=== PATIENT | male | born 1955 | race Caucasian/White ===

== ENCOUNTER 2020-02-27 06:04 | Outpatient (REF) | payer MEDICARE, OTHER, SELFPAY ==
[2020-02-27 11:26] LABS: MANUAL DIFF FLAG NO
[2020-02-27 11:44] LABS: Basophils Absolute Auto 0.1 X10*3/uL (0.0-0.2); Basophils Percent Auto 0.5 % (0-2); Eosinophils Absolute Auto 0.2 X10*3/uL (0.0-0.4); Eosinophils Percent Auto 0.9 % (0-4); Hematocrit 38.9 % (42-52); Hemoglobin 12.8 g/dl (14.0-18.0); Imm Gran Abs Auto 0.45 X10*3/uL (0.00-0.03); Imm Gran Pct Auto 2.3 % (0.0-0.4); Lymphocytes Absolute Auto 2.8 X10*3/uL (1.2-4.9); Lymphocytes Percent Auto 14.6 % (20-40); Mean Corpuscular HGB Conc 32.9 g/dl (31.0-36.0); Mean Corpuscular Hemoglobin 32.6 pg (27.0-33.0); Mean Platelet Volume 11.2 fL (9.4-12.4); Monocytes Absolute Auto 1.2 X10*3/uL (0.1-1.2); Monocytes Percent Auto 5.9 % (2-11); Neutrophils Absolute Auto 14.7 X10*3/uL (2.0-8.3); Neutrophils Percent Auto 75.8 % (45-73); Platelet Count 214 X10*3/uL (160-400); Red Blood Count 3.93 X10*6/uL (4.60-5.80); Red Cell Distribution Width 14.7 % (11.0-16.0); White Blood Count 19.4 X10*3/uL (4.8-10.8)
[2020-02-27 11:53] LABS: Alanine Aminotransferase 86 U/L (0-40); Albumin Level 4.1 g/dL (3.5-5.0); Alkaline Phosphatase 227 U/L (39-117); Anion Gap 15 (12-20); Aspartate Amino Transferase 57 U/L (5-37); Bilirubin Total 0.6 mg/dL (0.0-1.0); Blood Urea Nitrogen 15 mg/dL (9-16); Calcium 8.5 mg/dL (8.4-10.2); Carbon Dioxide 25 mmol/L (22-29); Chloride 99 mmol/L (96-108); Estimated Glomerular Filt Rate > 60; Glucose Random 103 mg/dL (60-115); Potassium 3.7 mmol/l (3.3-5.1); Sodium 135 mmol/L (135-145); Total Protein 6.3 g/dL (6.5-8.0)
== END 2020-02-27 06:05 | disposition home or self-care (01) ==
LOC: HO.HMGCLR 06:04
PROVIDERS: PCP Internal Medicine; Visit Provider Internal Medicine
DX: C25.0 Malignant neoplasm of head of pancreas (principal)
CPT/HCPCS: 36415; 80053; 85025

== ENCOUNTER 2020-03-19 06:00 | Outpatient (REF) | payer MEDICARE, OTHER, SELFPAY ==
[2020-03-19 11:08] LABS: MANUAL DIFF FLAG NO
[2020-03-19 11:12] LABS: Basophils Absolute Auto 0.1 X10*3/uL (0.0-0.2); Basophils Percent Auto 0.4 % (0-2); Eosinophils Absolute Auto 0.3 X10*3/uL (0.0-0.4); Eosinophils Percent Auto 1.9 % (0-4); Hematocrit 34.4 % (42-52); Hemoglobin 11.4 g/dl (14.0-18.0); Imm Gran Pct Auto 1.3 % (0.0-0.4); Lymphocytes Percent Auto 18.8 % (20-40); Mean Corpuscular HGB Conc 33.1 g/dl (31.0-36.0); Mean Corpuscular Hemoglobin 32.8 pg (27.0-33.0); Mean Corpuscular Volume 98.9 fL (80-98); Mean Platelet Volume 11.3 fL (9.4-12.4); Monocytes Absolute Auto 1.1 X10*3/uL (0.1-1.2); Monocytes Percent Auto 6.7 % (2-11); Neutrophils Absolute Auto 11.2 X10*3/uL (2.0-8.3); Neutrophils Percent Auto 70.9 % (45-73); Platelet Count 215 X10*3/uL (160-400); Red Blood Count 3.48 X10*6/uL (4.60-5.80); Red Cell Distribution Width 14.6 % (11.0-16.0); White Blood Count 15.7 X10*3/uL (4.8-10.8)
[2020-03-19 12:09] LABS: Alanine Aminotransferase 195 U/L (0-40); Albumin Level 3.8 g/dL (3.5-5.0); Alkaline Phosphatase 271 U/L (39-117); Anion Gap 13 (12-20); Aspartate Amino Transferase 76 U/L (5-37); Bilirubin Total 0.7 mg/dL (0.0-1.0); Blood Urea Nitrogen 12 mg/dL (9-16); Calcium 7.8 mg/dL (8.4-10.2); Carbon Dioxide 26 mmol/L (22-29); Chloride 102 mmol/L (96-108); Estimated Glomerular Filt Rate > 60; Glucose Random 95 mg/dL (60-115); Potassium 3.9 mmol/l (3.3-5.1); Sodium 137 mmol/L (135-145); Total Protein 5.9 g/dL (6.5-8.0)
== END 2020-03-19 06:01 | disposition home or self-care (01) ==
LOC: HO.HMGCLR 06:00
PROVIDERS: PCP Internal Medicine; Visit Provider Internal Medicine
DX: C25.0 Malignant neoplasm of head of pancreas (principal)
CPT/HCPCS: 36415; 80053; 85025

== ENCOUNTER 2020-04-02 06:00 | Outpatient (REF) | payer MEDICARE, OTHER, SELFPAY ==
[2020-04-02 07:47] LABS: MANUAL DIFF FLAG NO
[2020-04-02 07:51] LABS: Basophils Absolute Auto 0.1 X10*3/uL (0.0-0.2); Basophils Percent Auto 0.4 % (0-2); Eosinophils Absolute Auto 0.2 X10*3/uL (0.0-0.4); Eosinophils Percent Auto 1.5 % (0-4); Hematocrit 33.7 % (42-52); Imm Gran Abs Auto 0.51 X10*3/uL (0.00-0.03); Imm Gran Pct Auto 3.6 % (0.0-0.4); Lymphocytes Absolute Auto 2.4 X10*3/uL (1.2-4.9); Lymphocytes Percent Auto 16.8 % (20-40); Mean Corpuscular HGB Conc 32.6 g/dl (31.0-36.0); Mean Corpuscular Hemoglobin 33.2 pg (27.0-33.0); Mean Corpuscular Volume 101.8 fL (80-98); Mean Platelet Volume 11.2 fL (9.4-12.4); Monocytes Absolute Auto 1.2 X10*3/uL (0.1-1.2); Monocytes Percent Auto 8.5 % (2-11); Neutrophils Absolute Auto 9.8 X10*3/uL (2.0-8.3); Neutrophils Percent Auto 69.2 % (45-73); Platelet Count 225 X10*3/uL (160-400); Red Blood Count 3.31 X10*6/uL (4.60-5.80); Red Cell Distribution Width 15.7 % (11.0-16.0); White Blood Count 14.1 X10*3/uL (4.8-10.8)
[2020-04-02 08:26] LABS: Alanine Aminotransferase 101 U/L (0-40); Albumin Level 3.7 g/dL (3.5-5.0); Alkaline Phosphatase 245 U/L (39-117); Anion Gap 13 (12-20); Aspartate Amino Transferase 48 U/L (5-37); Bilirubin Total 0.4 mg/dL (0.0-1.0); Blood Urea Nitrogen 17 mg/dL (9-16); Calcium 7.9 mg/dL (8.4-10.2); Carbon Dioxide 24 mmol/L (22-29); Chloride 106 mmol/L (96-108); Estimated Glomerular Filt Rate > 60; Glucose Fasting 91 mg/dL (60-99); Potassium 4.2 mmol/l (3.3-5.1); Sodium 139 mmol/L (135-145); Total Protein 5.8 g/dL (6.5-8.0)
== END 2020-04-02 06:01 | disposition home or self-care (01) ==
LOC: HO.HMGCLR 06:00
PROVIDERS: PCP Internal Medicine; Visit Provider Internal Medicine
DX: C25.0 Malignant neoplasm of head of pancreas (principal)
CPT/HCPCS: 36415; 80053; 85025

== ENCOUNTER 2020-04-16 06:03 | Outpatient (REF) | payer MEDICARE, OTHER, SELFPAY ==
[2020-04-16 11:06] LABS: Basophils Absolute Auto 0.1 X10*3/uL (0.0-0.2); Basophils Percent Auto 0.6 % (0-2); Eosinophils Absolute Auto 0.3 X10*3/uL (0.0-0.4); Eosinophils Percent Auto 1.3 % (0-4); Hematocrit 33.1 % (42-52); Hemoglobin 10.6 g/dl (14.0-18.0); Imm Gran Abs Auto 0.58 X10*3/uL (0.00-0.03); Imm Gran Pct Auto 2.5 % (0.0-0.4); Lymphocytes Percent Auto 17.3 % (20-40); MANUAL DIFF FLAG SCAN; Mean Corpuscular Hemoglobin 32.8 pg (27.0-33.0); Mean Corpuscular Volume 102.5 fL (80-98); Mean Platelet Volume 11.5 fL (9.4-12.4); Monocytes Absolute Auto 1.7 X10*3/uL (0.1-1.2); Monocytes Percent Auto 7.2 % (2-11); Neutrophils Absolute Auto 16.2 X10*3/uL (2.0-8.3); Neutrophils Percent Auto 71.1 % (45-73); Platelet Count 224 X10*3/uL (160-400); Red Blood Count 3.23 X10*6/uL (4.60-5.80); Red Cell Distribution Width 15.2 % (11.0-16.0); SCAN SMEAR FLAG 1; White Blood Count 22.9 X10*3/uL (4.8-10.8)
[2020-04-16 11:27] LABS: SLIDE REVIEW VERIFIED
[2020-04-16 11:56] LABS: Alanine Aminotransferase 125 U/L (0-40); Albumin Level 3.5 g/dL (3.5-5.0); Alkaline Phosphatase 286 U/L (39-117); Anion Gap 13 (12-20); Aspartate Amino Transferase 68 U/L (5-37); Bilirubin Total 0.4 mg/dL (0.0-1.0); Blood Urea Nitrogen 17 mg/dL (9-16); Calcium 7.7 mg/dL (8.4-10.2); Carbon Dioxide 23 mmol/L (22-29); Chloride 103 mmol/L (96-108); Estimated Glomerular Filt Rate > 60; Glucose Random 76 mg/dL (60-115); Potassium 4.2 mmol/l (3.3-5.1); Sodium 135 mmol/L (135-145); Total Protein 5.6 g/dL (6.5-8.0)
== END 2020-04-16 06:04 | disposition home or self-care (01) ==
LOC: HO.HMGCLR 06:03
PROVIDERS: PCP Internal Medicine; Visit Provider Internal Medicine
DX: C25.0 Malignant neoplasm of head of pancreas (principal)
CPT/HCPCS: 36415; 80053; 85025

== ENCOUNTER 2020-04-30 06:03 | Outpatient (REF) | payer MEDICARE, OTHER, SELFPAY ==
[2020-04-30 11:03] LABS: MANUAL DIFF FLAG NO
[2020-04-30 11:19] LABS: Basophils Absolute Auto 0.1 X10*3/uL (0.0-0.2); Basophils Percent Auto 0.6 % (0-2); Eosinophils Absolute Auto 0.2 X10*3/uL (0.0-0.4); Eosinophils Percent Auto 1.4 % (0-4); Hematocrit 34.5 % (42-52); Imm Gran Abs Auto 0.49 X10*3/uL (0.00-0.03); Lymphocytes Absolute Auto 2.3 X10*3/uL (1.2-4.9); Lymphocytes Percent Auto 13.9 % (20-40); Mean Corpuscular HGB Conc 31.9 g/dl (31.0-36.0); Mean Corpuscular Volume 103.6 fL (80-98); Mean Platelet Volume 11.3 fL (9.4-12.4); Monocytes Absolute Auto 1.2 X10*3/uL (0.1-1.2); Monocytes Percent Auto 7.3 % (2-11); Neutrophils Absolute Auto 12.2 X10*3/uL (2.0-8.3); Neutrophils Percent Auto 73.8 % (45-73); Platelet Count 247 X10*3/uL (160-400); Red Blood Count 3.33 X10*6/uL (4.60-5.80); Red Cell Distribution Width 15.3 % (11.0-16.0); White Blood Count 16.6 X10*3/uL (4.8-10.8)
[2020-04-30 11:48] LABS: Alanine Aminotransferase 93 U/L (0-40); Albumin Level 3.6 g/dL (3.5-5.0); Alkaline Phosphatase 275 U/L (39-117); Anion Gap 13 (12-20); Aspartate Amino Transferase 42 U/L (5-37); Bilirubin Total 0.5 mg/dL (0.0-1.0); Blood Urea Nitrogen 8 mg/dL (9-16); Calcium 8.1 mg/dL (8.4-10.2); Carbon Dioxide 28 mmol/L (22-29); Chloride 102 mmol/L (96-108); Estimated Glomerular Filt Rate > 60; Glucose Random 94 mg/dL (60-115); Potassium 4.2 mmol/l (3.3-5.1); Sodium 139 mmol/L (135-145); Total Protein 5.6 g/dL (6.5-8.0)
== END 2020-04-30 06:04 | disposition home or self-care (01) ==
LOC: HO.HMGCLR 06:03
PROVIDERS: PCP Internal Medicine; Visit Provider Internal Medicine
DX: C25.0 Malignant neoplasm of head of pancreas (principal)
CPT/HCPCS: 36415; 80053; 85025

== ENCOUNTER 2020-05-13 06:02 | Outpatient (REF) | payer MEDICARE, OTHER, SELFPAY ==
[2020-05-13 11:14] LABS: Basophils Absolute Auto 0.1 X10*3/uL (0.0-0.2); Basophils Percent Auto 0.7 % (0-2); Eosinophils Absolute Auto 0.4 X10*3/uL (0.0-0.4); Eosinophils Percent Auto 2.3 % (0-4); Hematocrit 34.1 % (42-52); Imm Gran Abs Auto 0.32 X10*3/uL (0.00-0.03); Imm Gran Pct Auto 1.8 % (0.0-0.4); Lymphocytes Absolute Auto 2.8 X10*3/uL (1.2-4.9); Lymphocytes Percent Auto 15.2 % (20-40); MANUAL DIFF FLAG SCAN; Mean Corpuscular HGB Conc 32.3 g/dl (31.0-36.0); Mean Corpuscular Hemoglobin 33.5 pg (27.0-33.0); Mean Platelet Volume 11.3 fL (9.4-12.4); Monocytes Absolute Auto 1.6 X10*3/uL (0.1-1.2); Monocytes Percent Auto 8.9 % (2-11); Neutrophils Absolute Auto 12.9 X10*3/uL (2.0-8.3); Neutrophils Percent Auto 71.1 % (45-73); Platelet Count 268 X10*3/uL (160-400); Red Blood Count 3.28 X10*6/uL (4.60-5.80); Red Cell Distribution Width 14.2 % (11.0-16.0); SCAN SMEAR FLAG 1; White Blood Count 18.2 X10*3/uL (4.8-10.8)
[2020-05-13 11:35] LABS: SLIDE REVIEW VERIFIED
[2020-05-13 11:45] LABS: Alanine Aminotransferase 154 U/L (0-40); Albumin Level 3.6 g/dL (3.5-5.0); Alkaline Phosphatase 377 U/L (39-117); Anion Gap 15 (12-20); Aspartate Amino Transferase 53 U/L (5-37); Bilirubin Total 0.4 mg/dL (0.0-1.0); Blood Urea Nitrogen 12 mg/dL (9-16); Carbon Dioxide 22 mmol/L (22-29); Chloride 103 mmol/L (96-108); Estimated Glomerular Filt Rate > 60; Glucose Random 93 mg/dL (60-115); Potassium 3.8 mmol/l (3.3-5.1); Sodium 136 mmol/L (135-145); Total Protein 5.9 g/dL (6.5-8.0)
== END 2020-05-13 06:03 | disposition home or self-care (01) ==
LOC: HO.HMGCLR 06:02
PROVIDERS: PCP Internal Medicine; Visit Provider Internal Medicine
DX: C25.0 Malignant neoplasm of head of pancreas (principal)
CPT/HCPCS: 36415; 80053; 85025

== ENCOUNTER 2020-06-11 06:03 | Outpatient (REF) | payer MEDICARE, OTHER, SELFPAY ==
[2020-06-11 11:25] LABS: MANUAL DIFF FLAG NO
[2020-06-11 11:45] LABS: Basophils Absolute Auto 0.2 X10*3/uL (0.0-0.2); Basophils Percent Auto 1.2 % (0-2); Eosinophils Absolute Auto 0.6 X10*3/uL (0.0-0.4); Hematocrit 33.3 % (42-52); Hemoglobin 10.4 g/dl (14.0-18.0); Imm Gran Abs Auto 0.11 X10*3/uL (0.00-0.03); Imm Gran Pct Auto 0.9 % (0.0-0.4); Immature Retic Fraction 18.4 % (2.3-13.4); Lymphocytes Percent Auto 16.4 % (20-40); Mean Corpuscular HGB Conc 31.2 g/dl (31.0-36.0); Mean Corpuscular Hemoglobin 32.2 pg (27.0-33.0); Mean Corpuscular Volume 103.1 fL (80-98); Mean Platelet Volume 10.1 fL (9.4-12.4); Monocytes Percent Auto 8.4 % (2-11); Neutrophils Absolute Auto 8.2 X10*3/uL (2.0-8.3); Neutrophils Percent Auto 68.1 % (45-73); Platelet Count 489 X10*3/uL (160-400); Red Blood Count 3.23 X10*6/uL (4.60-5.80); Red Cell Distribution Width 13.4 % (11.0-16.0); Retic HGB Equivalent 35.3 pg (30.0-35.0); Reticulocyte Percent 2.4 % (0.5-1.8); Reticulocytes Absolute 0.076 X10*6/uL (0.026-0.095); White Blood Count 12.1 X10*3/uL (4.8-10.8)
[2020-06-11 11:54] LABS: Alanine Aminotransferase 38 U/L (0-40); Albumin Level 3.2 g/dL (3.5-5.0); Alkaline Phosphatase 262 U/L (39-117); Anion Gap 13 (12-20); Aspartate Amino Transferase 30 U/L (5-37); Bilirubin Total 0.3 mg/dL (0.0-1.0); Blood Urea Nitrogen 14 mg/dL (9-16); Calcium 7.7 mg/dL (8.4-10.2); Carbon Dioxide 23 mmol/L (22-29); Chloride 104 mmol/L (96-108); Estimated Glomerular Filt Rate > 60; Glucose Random 88 mg/dL (60-115); Iron 47 mcg/dL (45-160); Percent Iron Saturation 23 % (15-50); Potassium 4.7 mmol/l (3.3-5.1); Sodium 135 mmol/L (135-145); Total Iron Binding Capacity 204 mcg/dL (228-428); Total Protein 5.8 g/dL (6.5-8.0); Unsaturated Iron Binding 157 ug/dL
[2020-06-11 12:15] LABS: Ferritin 491 ng/mL (20-250); Free T4 (Free Thyroxine) 0.91 ng/dL (0.71-1.85); Thyroid Stimulating Hormone 4.17 uIU/mL (0.32-4.0)
[2020-06-11 12:35] LABS: Folate > 20.0 ng/mL (> or = 4.0); Vitamin B12 > 2000 pg/mL (200-900)
== END 2020-06-11 06:04 | disposition home or self-care (01) ==
LOC: HO.HMGCLR 06:03
PROVIDERS: PCP Internal Medicine; Visit Provider Internal Medicine
DX: E03.9 Hypothyroidism, unspecified (principal); C25.9 Malignant neoplasm of pancreas, unspecified
CPT/HCPCS: 36415; 80053; 82607; 82728; 82746; 83540; 84439; 84443; 85025; 85045

== ENCOUNTER 2020-06-25 06:01 | Outpatient (REF) | payer MEDICARE, OTHER, SELFPAY ==
[2020-06-25 11:12] LABS: MANUAL DIFF FLAG NO
[2020-06-25 11:44] LABS: Alanine Aminotransferase 64 U/L (0-40); Albumin Level 3.1 g/dL (3.5-5.0); Alkaline Phosphatase 310 U/L (39-117); Anion Gap 11 (12-20); Aspartate Amino Transferase 71 U/L (5-37); Basophils Absolute Auto 0.1 X10*3/uL (0.0-0.2); Basophils Percent Auto 0.7 % (0-2); Bilirubin Total 0.2 mg/dL (0.0-1.0); Blood Urea Nitrogen 11 mg/dL (9-16); Calcium 7.5 mg/dL (8.4-10.2); Carbon Dioxide 30 mmol/L (22-29); Chloride 100 mmol/L (96-108); Eosinophils Absolute Auto 0.4 X10*3/uL (0.0-0.4); Estimated Glomerular Filt Rate > 60; Glucose Random 91 mg/dL (60-115); Hematocrit 33.7 % (42-52); Hemoglobin 10.4 g/dl (14.0-18.0); Imm Gran Abs Auto 0.19 X10*3/uL (0.00-0.03); Imm Gran Pct Auto 1.6 % (0.0-0.4); Lymphocytes Absolute Auto 2.5 X10*3/uL (1.2-4.9); Lymphocytes Percent Auto 20.5 % (20-40); Mean Corpuscular HGB Conc 30.9 g/dl (31.0-36.0); Mean Corpuscular Hemoglobin 31.8 pg (27.0-33.0); Mean Corpuscular Volume 103.1 fL (80-98); Monocytes Percent Auto 8.4 % (2-11); Neutrophils Absolute Auto 7.9 X10*3/uL (2.0-8.3); Neutrophils Percent Auto 65.8 % (45-73); Platelet Count 263 X10*3/uL (160-400); Potassium 3.9 mmol/L (3.3-5.1); Red Blood Count 3.27 X10*6/uL (4.60-5.80); Red Cell Distribution Width 14.4 % (11.0-16.0); Sodium 137 mmol/L (135-145); Total Protein 5.7 g/dL (6.5-8.0)
== END 2020-06-25 06:02 | disposition home or self-care (01) ==
LOC: HO.HMGCLR 06:01
PROVIDERS: PCP Internal Medicine; Visit Provider Internal Medicine
DX: C25.9 Malignant neoplasm of pancreas, unspecified (principal)
CPT/HCPCS: 36415; 80053; 85025

== ENCOUNTER 2020-07-15 05:55 | Outpatient (REF) | payer MEDICARE, OTHER, SELFPAY ==
[2020-07-15 11:12] LABS: MANUAL DIFF FLAG NO
[2020-07-15 11:23] LABS: Basophils Absolute Auto 0.1 X10*3/uL (0.0-0.2); Basophils Percent Auto 0.6 % (0-2); Eosinophils Absolute Auto 0.4 X10*3/uL (0.0-0.4); Eosinophils Percent Auto 2.6 % (0-4); Hemoglobin 10.6 g/dl (14.0-18.0); Imm Gran Abs Auto 0.21 X10*3/uL (0.00-0.03); Imm Gran Pct Auto 1.3 % (0.0-0.4); Lymphocytes Absolute Auto 2.6 X10*3/uL (1.2-4.9); Lymphocytes Percent Auto 15.7 % (20-40); Mean Corpuscular HGB Conc 32.1 g/dl (31.0-36.0); Mean Corpuscular Hemoglobin 31.9 pg (27.0-33.0); Mean Corpuscular Volume 99.4 fL (80-98); Mean Platelet Volume 11.4 fL (9.4-12.4); Monocytes Absolute Auto 1.4 X10*3/uL (0.1-1.2); Monocytes Percent Auto 8.1 % (2-11); Neutrophils Absolute Auto 11.9 X10*3/uL (2.0-8.3); Neutrophils Percent Auto 71.7 % (45-73); Platelet Count 219 X10*3/uL (160-400); Red Blood Count 3.32 X10*6/uL (4.60-5.80); Red Cell Distribution Width 14.3 % (11.0-16.0); White Blood Count 16.6 X10*3/uL (4.8-10.8)
[2020-07-15 12:08] LABS: Alanine Aminotransferase 160 U/L (0-40); Albumin Level 3.5 g/dL (3.5-5.0); Alkaline Phosphatase 284 U/L (39-117); Anion Gap 11 (12-20); Aspartate Amino Transferase 80 U/L (5-37); Bilirubin Total 0.4 mg/dL (0.0-1.0); Blood Urea Nitrogen 12 mg/dL (9-16); Calcium 8.1 mg/dL (8.4-10.2); Carbon Dioxide 29 mmol/L (22-29); Chloride 103 mmol/L (96-108); Estimated Glomerular Filt Rate > 60; Glucose Random 76 mg/dL (60-115); Potassium 3.8 mmol/L (3.3-5.1); Sodium 139 mmol/L (135-145); Total Protein 5.7 g/dL (6.5-8.0)
== END 2020-07-15 05:56 | disposition home or self-care (01) ==
LOC: HO.HMGCLR 05:55
PROVIDERS: PCP Internal Medicine; Visit Provider Internal Medicine
DX: C25.9 Malignant neoplasm of pancreas, unspecified (principal)
CPT/HCPCS: 36415; 80053; 85025

== ENCOUNTER 2020-08-27 06:08 | Outpatient (REF) | payer MEDICARE, OTHER, SELFPAY ==
[2020-08-27 11:21] LABS: MANUAL DIFF FLAG NO
[2020-08-27 11:37] LABS: Basophils Absolute Auto 0.1 X10*3/uL (0.0-0.2); Basophils Percent Auto 0.4 % (0-2); Eosinophils Absolute Auto 0.4 X10*3/uL (0.0-0.4); Eosinophils Percent Auto 3.2 % (0-4); Hematocrit 33.5 % (42-52); Hemoglobin 10.3 g/dl (14.0-18.0); Imm Gran Abs Auto 0.41 X10*3/uL (0.00-0.03); Imm Gran Pct Auto 3.2 % (0.0-0.4); Lymphocytes Absolute Auto 2.9 X10*3/uL (1.2-4.9); Lymphocytes Percent Auto 23.1 % (20-40); Mean Corpuscular HGB Conc 30.7 g/dl (31.0-36.0); Mean Corpuscular Hemoglobin 31.7 pg (27.0-33.0); Mean Corpuscular Volume 103.1 fL (80-98); Mean Platelet Volume 11.4 fL (9.4-12.4); Monocytes Absolute Auto 1.1 X10*3/uL (0.1-1.2); Monocytes Percent Auto 8.4 % (2-11); Neutrophils Absolute Auto 7.8 X10*3/uL (2.0-8.3); Neutrophils Percent Auto 61.7 % (45-73); Platelet Count 148 X10*3/uL (160-400); Red Blood Count 3.25 X10*6/uL (4.60-5.80); Red Cell Distribution Width 16.1 % (11.0-16.0); White Blood Count 12.7 X10*3/uL (4.8-10.8)
[2020-08-27 12:01] LABS: Alanine Aminotransferase 40 U/L (0-40); Albumin Level 2.9 g/dL (3.5-5.0); Alkaline Phosphatase 198 U/L (39-117); Anion Gap 12 (12-20); Aspartate Amino Transferase 34 U/L (5-37); Bilirubin Total 0.3 mg/dL (0.0-1.0); Blood Urea Nitrogen 13 mg/dL (9-16); Carbon Dioxide 26 mmol/L (22-29); Chloride 107 mmol/L (96-108); Estimated Glomerular Filt Rate > 60; Glucose Random 88 mg/dL (60-115); Potassium 3.8 mmol/L (3.3-5.1); Sodium 141 mmol/L (135-145); Total Protein 5.3 g/dL (6.5-8.0)
[2020-08-27 12:07] LABS: Calcium 7.5 mg/dL (8.4-10.2)
== END 2020-08-27 06:09 | disposition home or self-care (01) ==
LOC: HO.HMGCLR 06:08
PROVIDERS: Visit Provider Internal Medicine
DX: C25.9 Malignant neoplasm of pancreas, unspecified (principal)
CPT/HCPCS: 36415; 80053; 85025

== ENCOUNTER 2020-09-10 14:21 | Outpatient (REF) | payer MEDICARE, OTHER, SELFPAY ==
[2020-09-10 16:27] LABS: Basophils Percent Auto 0.3 % (0-2); MANUAL DIFF FLAG SCAN; Mean Corpuscular Volume 100.3 fL (80-98); Mean Platelet Volume 11.8 fL (9.4-12.4); PLT CLUMP 1
[2020-09-10 16:29] LABS: Basophils Absolute Auto 0.1 X10*3/uL (0.0-0.2); Eosinophils Absolute Auto 0.2 X10*3/uL (0.0-0.4); Eosinophils Percent Auto 0.9 % (0-4); Hematocrit 31.1 % (42-52); Hemoglobin 9.9 g/dl (14.0-18.0); Imm Gran Abs Auto 0.73 X10*3/uL (0.00-0.03); Imm Gran Pct Auto 3.5 % (0.0-0.4); Lymphocytes Absolute Auto 2.6 X10*3/uL (1.2-4.9); Lymphocytes Percent Auto 12.5 % (20-40); Mean Corpuscular HGB Conc 31.8 g/dl (31.0-36.0); Mean Corpuscular Hemoglobin 31.9 pg (27.0-33.0); Monocytes Absolute Auto 1.5 X10*3/uL (0.1-1.2); Monocytes Percent Auto 7.2 % (2-11); Neutrophils Absolute Auto 15.9 X10*3/uL (2.0-8.3); Neutrophils Percent Auto 75.6 % (45-73); Platelet Count 121 X10*3/uL (160-400); Red Cell Distribution Width 16.5 % (11.0-16.0); SCAN SMEAR FLAG 1; White Blood Count 21.1 X10*3/uL (4.8-10.8)
[2020-09-10 16:47] LABS: SLIDE REVIEW VERIFIED
[2020-09-10 16:58] LABS: Alanine Aminotransferase 47 U/L (0-40); Albumin Level 3.1 g/dL (3.5-5.0); Alkaline Phosphatase 221 U/L (39-117); Anion Gap 13 (12-20); Aspartate Amino Transferase 34 U/L (5-37); Bilirubin Total 0.4 mg/dL (0.0-1.0); Blood Urea Nitrogen 12 mg/dL (9-16); Calcium 7.8 mg/dL (8.4-10.2); Carbon Dioxide 25 mmol/L (22-29); Chloride 105 mmol/L (96-108); Estimated Glomerular Filt Rate > 60; Glucose Random 76 mg/dL (60-115); Potassium 3.5 mmol/L (3.3-5.1); Sodium 139 mmol/L (135-145); Total Protein 5.4 g/dL (6.5-8.0)
== END 2020-09-10 14:22 | disposition home or self-care (01) ==
LOC: HO.HMGCLR 14:21
PROVIDERS: PCP Internal Medicine; Visit Provider Internal Medicine
DX: C25.9 Malignant neoplasm of pancreas, unspecified (principal)
CPT/HCPCS: 36415; 80053; 85025

== ENCOUNTER 2020-09-24 06:12 | Outpatient (REF) | payer MEDICARE, OTHER, SELFPAY ==
[2020-09-24 11:39] LABS: MANUAL DIFF FLAG NO
[2020-09-24 11:57] LABS: Alanine Aminotransferase 41 U/L (0-40); Alkaline Phosphatase 229 U/L (39-117); Anion Gap 12 (12-20); Aspartate Amino Transferase 36 U/L (5-37); Basophils Absolute Auto 0.1 X10*3/uL (0.0-0.2); Basophils Percent Auto 0.4 % (0-2); Bilirubin Total < 0.2 mg/dL (0.0-1.0); Blood Urea Nitrogen 17 mg/dL (9-16); Calcium 7.7 mg/dL (8.4-10.2); Carbon Dioxide 24 mmol/L (22-29); Chloride 107 mmol/L (96-108); Eosinophils Absolute Auto 0.2 X10*3/uL (0.0-0.4); Eosinophils Percent Auto 1.3 % (0-4); Estimated Glomerular Filt Rate > 60; Glucose Random 95 mg/dL (60-115); Hematocrit 31.8 % (42-52); Hemoglobin 9.7 g/dl (14.0-18.0); Imm Gran Abs Auto 0.76 X10*3/uL (0.00-0.03); Lymphocytes Absolute Auto 2.2 X10*3/uL (1.2-4.9); Lymphocytes Percent Auto 11.9 % (20-40); Mean Corpuscular HGB Conc 30.5 g/dl (31.0-36.0); Mean Corpuscular Hemoglobin 32.1 pg (27.0-33.0); Mean Corpuscular Volume 105.3 fL (80-98); Mean Platelet Volume 11.5 fL (9.4-12.4); Monocytes Absolute Auto 1.4 X10*3/uL (0.1-1.2); Monocytes Percent Auto 7.3 % (2-11); Neutrophils Absolute Auto 14.1 X10*3/uL (2.0-8.3); Neutrophils Percent Auto 75.1 % (45-73); Platelet Count 157 X10*3/uL (160-400); Potassium 3.8 mmol/L (3.3-5.1); Red Blood Count 3.02 X10*6/uL (4.60-5.80); Red Cell Distribution Width 17.2 % (11.0-16.0); Sodium 139 mmol/L (135-145); Total Protein 5.2 g/dL (6.5-8.0); White Blood Count 18.8 X10*3/uL (4.8-10.8)
== END 2020-09-24 06:13 | disposition home or self-care (01) ==
LOC: HO.HMGCLR 06:12
PROVIDERS: PCP Internal Medicine; Visit Provider Internal Medicine
DX: C25.9 Malignant neoplasm of pancreas, unspecified (principal)
CPT/HCPCS: 36415; 80053; 85025

== ENCOUNTER 2020-10-08 06:03 | Outpatient (REF) | payer MEDICARE, OTHER, SELFPAY ==
[2020-10-08 11:43] LABS: Hematocrit 33.5 % (42-52); Hemoglobin 10.6 g/dl (14.0-18.0); Mean Corpuscular HGB Conc 31.6 g/dl (31.0-36.0); Mean Corpuscular Hemoglobin 32.7 pg (27.0-33.0); Mean Corpuscular Volume 103.4 fL (80-98); Mean Platelet Volume 11.4 fL (9.4-12.4); Platelet Count 132 X10*3/uL (160-400); Red Blood Count 3.24 X10*6/uL (4.60-5.80)
[2020-10-08 12:04] LABS: Band Neutrophils Percent 12 % (3-5); Basophils Abs Manual 0.3 X10*3/uL (0.0-0.3); Basophils Percent Manual 1 % (0-1); Lymphocytes Absolute Manual 4.3 X10*3/uL (0.6-4.8); Lymphocytes Percent Manual 16 % (20-40); Metamyelocytes Absolute 0.8 X10*3/uL; Metamyelocytes Percent 3 %; Monocytes Absolute Manual 0.3 X10*3/uL (0.0-1.2); Monocytes Percent Manual 1 % (2-11); Myelocytes Absolute 0.3 X10*/uL; Myelocytes Percent 1 %; Neutrophils Absolute Manual 21.1 X10*3/uL (2.2-7.9); Neutrophils Percent Manual 66 % (45-73)
[2020-10-08 12:06] LABS: Platelet Estimate SLIGHTLY DECREASED (NORMAL); Platelet Morphology Comment NORMAL
[2020-10-08 12:07] LABS: Macrocytosis 1+ (5-14) /OIF; RBC Morphology NOTED
[2020-10-08 12:08] LABS: Polychromasia 1+ (0-2) /OIF
[2020-10-08 12:12] LABS: Alanine Aminotransferase 36 U/L (0-40); Albumin Level 3.3 g/dL (3.5-5.0); Alkaline Phosphatase 307 U/L (39-117); Anion Gap 12 (12-20); Aspartate Amino Transferase 29 U/L (5-37); Bilirubin Total 0.6 mg/dL (0.0-1.0); Blood Urea Nitrogen 14 mg/dL (9-16); Calcium 7.9 mg/dL (8.4-10.2); Carbon Dioxide 24 mmol/L (22-29); Chloride 107 mmol/L (96-108); Estimated Glomerular Filt Rate > 60; Glucose Random 101 mg/dL (60-115); Potassium 3.6 mmol/L (3.3-5.1); Sodium 139 mmol/L (135-145); Total Protein 5.7 g/dL (6.5-8.0)
[2020-10-09 11:36] LABS: Carbohydrate Antigen 19-9 474 U/mL (<34)
== END 2020-10-08 06:04 | disposition home or self-care (01) ==
LOC: HO.HMGCLR 06:03
PROVIDERS: PCP Internal Medicine; Visit Provider Internal Medicine
DX: C25.9 Malignant neoplasm of pancreas, unspecified (principal); C78.00 Secondary malignant neoplasm of unspecified lung
CPT/HCPCS: 36415; 80053; 85007; 85027; 86301

== ENCOUNTER 2020-10-20 13:31 | Outpatient (REF) | payer MEDICARE, OTHER, SELFPAY ==
--- NOTE | ~2020-10-20 | XR_ITS ---
EXAMINATION: XR SHOULDER, RIGHT CLINICAL INFORMATION: Pain right shoulder. Status post fall 2 COMPARISON: None TECHNIQUE: AP external rotation, Grashey, scapular Y, and axillary views of the right shoulder. FINDINGS: There is mild reduction in the glenohumeral joint space. No bony erosive changes seen. Mild loss of right AC joint is noted. There is a small calcification of the insertion of right greater tuberosity likely calcific bursitis. No visible acute fracture or dislocation seen. XR/XR shoulder RT min 2V IMPRESSION: Likely calcific bursitis right ureter cuff. Mild DJD right shoulder. No acute fracture or dislocation.
== END 2020-10-20 13:32 | disposition home or self-care (01) ==
LOC: HO.HMGCX 13:31
PROVIDERS: PCP Internal Medicine; Visit Provider Internal Medicine
DX: M25.511 Pain in right shoulder (principal)
CPT/HCPCS: 73030

== ENCOUNTER 2020-10-22 06:08 | Outpatient (REF) | payer MEDICARE, OTHER, SELFPAY ==
[2020-10-22 12:19] LABS: Hematocrit 31.5 % (42-52); Hemoglobin 9.9 g/dl (14.0-18.0); Mean Corpuscular HGB Conc 31.4 g/dl (31.0-36.0); Mean Corpuscular Hemoglobin 33.9 pg (27.0-33.0); Mean Corpuscular Volume 107.9 fL (80-98); Mean Platelet Volume 11.6 fL (9.4-12.4); Platelet Count 184 X10*3/uL (160-400); Red Blood Count 2.92 X10*6/uL (4.60-5.80); Red Cell Distribution Width 17.2 % (11.0-16.0); White Blood Count 25.1 X10*3/uL (4.8-10.8)
[2020-10-22 12:44] LABS: Atypical Lymph Absolute Manual 0.3 x10*3/uL; Atypical Lymphs Percent Manual 1 % (0-6); Band Neutrophils Percent 18 % (3-5); Lymphocytes Absolute Manual 3.5 X10*3/uL (0.6-4.8); Lymphocytes Percent Manual 14 % (20-40); Metamyelocytes Absolute 0.3 X10*3/uL; Metamyelocytes Percent 1 %; Monocytes Absolute Manual 0.3 X10*3/uL (0.0-1.2); Monocytes Percent Manual 1 % (2-11); Neutrophils Absolute Manual 20.8 X10*3/uL (2.2-7.9); Neutrophils Percent Manual 65 % (45-73)
[2020-10-22 12:46] LABS: Platelet Estimate NORMAL (NORMAL); Platelet Morphology Comment NORMAL
[2020-10-22 12:47] LABS: Acanthocytes 1+ (0-2) /OIF; Alanine Aminotransferase 39 U/L (0-40); Albumin Level 3.2 g/dL (3.5-5.0); Alkaline Phosphatase 336 U/L (39-117); Anion Gap 13 (12-20); Aspartate Amino Transferase 29 U/L (5-37); Bilirubin Total 0.5 mg/dL (0.0-1.0); Blood Urea Nitrogen 11 mg/dL (9-16); Carbon Dioxide 25 mmol/L (22-29); Chloride 103 mmol/L (96-108); Estimated Glomerular Filt Rate > 60; Glucose Random 90 mg/dL (60-115); Polychromasia 1+ (0-2) /OIF; Potassium 4.3 mmol/L (3.3-5.1); RBC Morphology NOTED; Sodium 137 mmol/L (135-145); Total Protein 5.6 g/dL (6.5-8.0)
[2020-10-22 12:48] LABS: Burr Cells 1+ (0-2) /OIF
[2020-10-23 10:42] LABS: Carbohydrate Antigen 19-9 527 U/mL (<34)
== END 2020-10-22 06:09 | disposition home or self-care (01) ==
LOC: HO.HMGCLR 06:08
PROVIDERS: PCP Internal Medicine; Visit Provider Internal Medicine
DX: C25.0 Malignant neoplasm of head of pancreas (principal)
CPT/HCPCS: 36415; 80053; 85007; 85025; 85027; 86301

== ENCOUNTER 2020-11-05 06:02 | Outpatient (REF) | payer MEDICARE, OTHER, SELFPAY ==
[2020-11-05 11:42] LABS: Basophils Absolute Auto 0.1 X10*3/uL (0.0-0.2); Basophils Percent Auto 0.2 % (0-2)
[2020-11-05 11:44] LABS: Alanine Aminotransferase 114 U/L (0-40); Albumin Level 3.2 g/dL (3.5-5.0); Alkaline Phosphatase 520 U/L (39-117); Anion Gap 16 (12-20); Aspartate Amino Transferase 255 U/L (5-37); Bilirubin Total 0.4 mg/dL (0.0-1.0); Blood Urea Nitrogen 22 mg/dL (9-16); Calcium 7.8 mg/dL (8.4-10.2); Carbon Dioxide 20 mmol/L (22-29); Chloride 105 mmol/L (96-108); Eosinophils Absolute Auto 0.2 X10*3/uL (0.0-0.4); Eosinophils Percent Auto 0.9 % (0-4); Estimated Glomerular Filt Rate > 60; Glucose Random 93 mg/dL (60-115); Hematocrit 30.9 % (42-52); Hemoglobin 9.9 g/dl (14.0-18.0); Lymphocytes Absolute Auto 2.9 X10*3/uL (1.2-4.9); Lymphocytes Percent Auto 13.3 % (20-40); Mean Corpuscular Hemoglobin 34.4 pg (27.0-33.0); Mean Corpuscular Volume 107.3 fL (80-98); Mean Platelet Volume 11.1 fL (9.4-12.4); Monocytes Absolute Auto 1.4 X10*3/uL (0.1-1.2); Monocytes Percent Auto 6.5 % (2-11); Neutrophils Absolute Auto 16.2 X10*3/uL (2.0-8.3); Neutrophils Percent Auto 74.1 % (45-73); Platelet Count 122 X10*3/uL (160-400); Potassium 4.1 mmol/L (3.3-5.1); Red Blood Count 2.88 X10*6/uL (4.60-5.80); Red Cell Distribution Width 16.5 % (11.0-16.0); Sodium 137 mmol/L (135-145); Total Protein 5.7 g/dL (6.5-8.0); White Blood Count 21.9 X10*3/uL (4.8-10.8)
== END 2020-11-05 06:03 | disposition home or self-care (01) ==
LOC: HO.HMGCLR 06:02
PROVIDERS: PCP Internal Medicine; Visit Provider Internal Medicine
DX: C25.9 Malignant neoplasm of pancreas, unspecified (principal)
CPT/HCPCS: 36415; 80053; 85025

== ENCOUNTER 2021-01-21 13:12 | Outpatient (REF) | payer MEDICARE, OTHER, SELFPAY ==
--- NOTE | ~2021-01-21 | XR_ITS ---
EXAMINATION: CHEST X-RAY AND LEFT SHOULDER X-RAY CLINICAL INFORMATION: Left shoulder pain COMPARISON: Previous chest x-ray March 2018 TECHNIQUE: 2 views of the chest. 3 views of the left shoulder FINDINGS: Chest: The cardiac and mediastinal contours are normal. There is a new left jugular Port-A-Cath with tip projecting over the SVC. There are innumerable new bilateral pulmonary nodules. Largest pulmonary nodule measures 1 cm in the right lower lobe. There is question of areas of bronchial wall thickening. There is evidence of previous surgery with surgical staple line seen at the right lung base. There is no pleural effusion or pneumothorax. Bony structures are unremarkable. Left shoulder: Bone alignment is normal. No fracture, dislocation or bone lesion is seen. The glenohumeral joint is normal. There is arthritis at the acromioclavicular joint. There is question of lucency in the first rib on one of 3 images, the third image. There are surgical clips over the left shoulder. There is a left sided Port-A-Cath. XR/XR chest 2V IMPRESSION: Chest: Innumerable new bilateral pulmonary nodules. Infectious, inflammatory and neoplastic processes should be considered. New left jugular Port-A-Cath. Left shoulder: No fracture or dislocation. Arthritis at the acromioclavicular joint. Question lucency in the left first rib.
--- NOTE | ~2021-01-21 | XR_ITS ---
EXAMINATION: CHEST X-RAY AND LEFT SHOULDER X-RAY CLINICAL INFORMATION: Left shoulder pain COMPARISON: Previous chest x-ray March 2018 TECHNIQUE: 2 views of the chest. 3 views of the left shoulder FINDINGS: Chest: The cardiac and mediastinal contours are normal. There is a new left jugular Port-A-Cath with tip projecting over the SVC. There are innumerable new bilateral pulmonary nodules. Largest pulmonary nodule measures 1 cm in the right lower lobe. There is question of areas of bronchial wall thickening. There is evidence of previous surgery with surgical staple line seen at the right lung base. There is no pleural effusion or pneumothorax. Bony structures are unremarkable. Left shoulder: Bone alignment is normal. No fracture, dislocation or bone lesion is seen. The glenohumeral joint is normal. There is arthritis at the acromioclavicular joint. There is question of lucency in the first rib on one of 3 images, the third image. There are surgical clips over the left shoulder. There is a left sided Port-A-Cath. XR/XR shoulder LT min 2V IMPRESSION: Chest: Innumerable new bilateral pulmonary nodules. Infectious, inflammatory and neoplastic processes should be considered. New left jugular Port-A-Cath. Left shoulder: No fracture or dislocation. Arthritis at the acromioclavicular joint. Question lucency in the left first rib.
== END 2021-01-21 13:13 | disposition home or self-care (01) ==
LOC: HO.HMGCX 13:12
PROVIDERS: PCP Internal Medicine; Visit Provider Internal Medicine
DX: Z13.89 Encounter for screening for other disorder (principal)
CPT/HCPCS: 71046; 73030